=== PATIENT | female | born 1970 | race Caucasian/White ===

== ENCOUNTER 2018-01-22 08:43 | Day surgery (SDC) | payer MEDICAID ==
[~2018-01-22 08:43] MED LIST: CEFAZOLIN 2 GM/50 ML (PMX) 50 ML IVPB; SOD CHLORIDE 0.9% 1,000 ML IV
[2018-01-22] MEDS ORDERED: CEFAZOLIN 1 GM INJ (10:12)
[2018-01-22] MEDS ORDERED: LIDOCAINE 100 MG SYRINGE (10:12)
[2018-01-22] MEDS ORDERED: PROPOFOL 20 ML (10:12)
[2018-01-22] MEDS ORDERED: MEPERIDINE 100 MG INJ (10:13)
[2018-01-22] MEDS ORDERED: ONDANSETRON 4 MG INJ (10:16)
[2018-01-22] MEDS ORDERED: METOCLOPRAMIDE 10 MG INJ (10:16)
[2018-01-22] MEDS ORDERED: MIDAZOLAM 1 MG/ML 2 ML INJ IV (10:30)
[2018-01-22] MEDS ORDERED: hydrALAzine 20 MG INJ IV (10:30)
[2018-01-22] MEDS ORDERED: FENTAnyl 50 MCG/ML VIAL IV ×3 (10:30)
[2018-01-22] MEDS ORDERED: LABETALOL HCL 20MG INJ IV (10:30)
[2018-01-22] MEDS ORDERED: DIPHENHYDRAMINE 50 MG INJ IV (10:30)
[2018-01-22] MEDS ORDERED: METOCLOPRAMIDE 10 MG INJ IV (10:30)
[2018-01-22] MEDS ORDERED: HYDROmorphONE (0.2 MG/ML) 10ML SYG IV ×2 (10:30)
[2018-01-22] MEDS ORDERED: MEPERIDINE 25 MG INJ IV (10:30)
[2018-01-22] MEDS ORDERED: EPHEDrine SULFATE 50 MG/5 ML SYG IV (10:30)
[2018-01-22] MEDS ORDERED: OXYCODONE/ACETAMINOPHEN (5/325) TAB PO ×2 (10:30)
[2018-01-22] MEDS: HYDROmorphONE (0.2 MG/ML) 10ML SYG IV (11:57)
[2018-01-22] MEDS: ONDANSETRON 4 MG INJ IV (11:57)
== END 2018-01-22 13:45 | disposition home or self-care (01) ==
LOC: SDS 08:43
DX: D24.2 Benign neoplasm of left breast (principal); E66.9 Obesity, unspecified; Z68.35 Body mass index [BMI] 35.0-35.9, adult
CPT/HCPCS: 19120; 88307